=== PATIENT | male | born 1980 | race American Indian/Alaskan Native ===

== ENCOUNTER 2017-07-29 17:54 | Emergency (ER) | payer SELFPAY ==
[2017-07-29 18:09] VITALS: BP 130/90
== END 2017-07-29 21:30 | disposition left against medical advice (07) ==
LOC: ED 17:54
DX: S01.91XA Laceration without foreign body of unspecified part of head, initial encounter (principal); Z53.21 Procedure and treatment not carried out due to patient leaving prior to being seen by health care provider; X58.XXXA Exposure to other specified factors, initial encounter; Y93.89 Activity, other specified; Y92.89 Other specified places as the place of occurrence of the external cause; Y99.8 Other external cause status

== ENCOUNTER 2021-07-10 22:08 | Emergency (ER) | payer SELFPAY ==
[2021-07-11] MEDS ORDERED: IBUPROFEN 800 MG TAB PO ONE (04:18)
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
[2021-07-11 06:17] VITALS: BP 142/88
== END 2021-07-11 06:22 | disposition home or self-care (01) ==
LOC: ED 22:08
DX: R07.0 Pain in throat (principal); J45.909 Unspecified asthma, uncomplicated; F17.200 Nicotine dependence, unspecified, uncomplicated; Y04.8XXA Assault by other bodily force, initial encounter; Y93.89 Activity, other specified; Y92.89 Other specified places as the place of occurrence of the external cause; Y99.8 Other external cause status
CPT/HCPCS: 70360; 99283